=== PATIENT | male | born 1980 | race African-American/Black ===

== ENCOUNTER 2018-12-25 11:21 | Emergency (ER) | payer SELFPAY ==
[~2018-12-25 11:21] MED LIST: Iopamidol 370 76% 100 ML VIAL ONE
[2018-12-25] MEDS ORDERED: Sodium Chloride 0.9% 1,000 ML ONE (11:32)
[2018-12-25] MEDS ORDERED: Ondansetron PF 4 MG/2 ML Vial ONE ×2 (11:32→12:50)
[2018-12-25 11:54] LABS: #Basophils 0.1 thou/uL (0.0-0.2); #Eosinphils 0.2 thou/uL (0.0-0.7); #Lymphocytes 1.9 thou/uL (1.20-3.40); #Monocytes 0.8 thou/uL (0.11-0.59); #Neutrophils 4.8 thou/uL (1.40-6.50); %Basophils 1.5 % (0.0-1.0); %Eosinophils 3.1 % (0.0-10.0); %Monocytes 9.9 % (0.0-10.0); %Neutrophils 61.6 % (42.0-75.0); Hemoglobin 16.2 g/dL (14.0-18.0); Mean Corpuscular HGB CONC 32.4 g/dL (32.0-36.0); Mean Platelet Volume 8.8 fL (7.4-10.4); Platelet Count 274 thou/uL (130-400); Red Blood Cell (RBC) Count 4.92 mill/uL (4.70-6.10); White Blood Cell (WBC) Count 7.8 thou/uL (4.8-10.8)
[2018-12-25] MEDS ORDERED: Fentanyl 100 MCG/2 ML VIAL ONE ×3 (11:57→16:39)
[2018-12-25 12:15] LABS: ALT (SGPT) 27 U/L (8-55); AST (SGOT) 25 U/L (5-34); Albumin 4.8 g/dL (3.5-5.0); Alkaline Phosphatase 85 U/L (40-150); Anion Gap 15 mmol/L (10-20); BUN (Urea Nitrogen) 7 mg/dL (8.9-20.6); Bilirubin, Total 0.4 mg/dL (0.2-1.2); CK (CPK) 192 U/L (30-200); Calc. Creatinine Clearance 0 mL/min (70-130); Calcium 10.3 mg/dL (7.8-10.44); Carbon Dioxide 22 mmol/L (22-29); Chloride 107 mmol/L (98-107); Estimated GFR-MDRD Greater than 90; Globulin 3.1 g/dL (2.4-3.5); Glucose 97 mg/dL (70-105); Lipase 52 U/L (8-78); Protein, Total 7.9 g/dL (6.0-8.3); Sodium 140 mmol/L (136-145)
[2018-12-25] MEDS ORDERED: Pantoprazole 40 MG VIAL ONE (12:50)
[2018-12-25 13:08] LABS: Bilirubin Negative (Negative); Blood, Urine Trace (Negative); Clarity Clear (Clear); Glucose, Urine (Dipstick) Negative (Negative); Leukocyte Negative (Negative); Nitrite Negative (Negative); Protein, Urine (Dipstick) Negative (Neg-Trace); Urobilinogen 0.2 mg/dL (0.2-1.0); pH, Urine 7.5 (5.0-9.0)
[2018-12-25 13:10] LABS: Amphetamine Not Detected (NotDetected); Barbiturates Screen Not Detected (NotDetected); Benzodiazepine Screen Not Detected (NotDetected); Cocaine Metabolite Screen Not Detected (NotDetected); Medtox Control Line Valid? VALID (VALID); Methadone Not Detected (NotDetected); Methamphetamine Not Detected (NotDetected); Opiate Screen Not Detected (NotDetected); Oxycodone Screen Not Detected (NotDetected); Phencyclidine (PCP) Not Detected (NotDetected); THC/Cannabinoid Screen Detected (NotDetected); Tricyclic Screen Not Detected (NotDetected)
[2018-12-25 13:16] LABS: RBC/HPF 0-3 HPF (0-3); WBC/HPF 0-3 HPF (0-3)
--- NOTE | 2018-12-25 14:05 | CT ---
CT ABDOMEN AND PELVIS WITH CONTRAST: Date: 12/25/18 HISTORY: Nausea and vomiting. COMPARISON: CT abdomen and pelvis dated 10/17/14. FINDINGS: Low grade atelectatic changes in the lung bases. No pericardial effusion. Prior cholecystectomy. Mild reservoir effect extrahepatic biliary system. There is extensive motion artifact throughout the abdomen and pelvis. The appendix is visualized and is normal. There are no dilated loops of large or small bowel. There is some mucosal edema of the transverse colon with low grade hyperemia of the mesentery. Mild w all thickening of the proximal jejunum. Terminal ileum is unremarkable. No retroperitoneal adenopathy. Aortic contour is nonaneurysmal. Exam is somewhat limited due to the delayed phase of contrast as there is already contrast entering t he ureters. The spleen, adrenal glands, and pancreas are all unremarkable. No acute osseous abnormality. IMPRESSION: 1. Low grade proximal enteritis and transverse colitis. 2. Normal appendix. 3. Normal pancreas. 4. No hydronephrosis. POS: [facility]
[2018-12-25] MEDS ORDERED: Promethazine HCl 25 MG/ML VIAL ONE (14:06)
[2018-12-25] MEDS ORDERED: Lidocaine Viscous Sol 2% 15 ml UD Cup ONE (15:37)
[2018-12-25] MEDS ORDERED: Mag-Al Plus 1200 MG/1200 MG/120 MG/30 ML UDCUP ONE (15:37)
[2018-12-25 17:03] LABS: Lactic Acid 2.4 mmol/L (0.5-2.2)
== END 2018-12-25 16:56 | disposition short-term general hospital (02) ==
LOC: NAV ERS 11:21
DX: R11.2 Nausea with vomiting, unspecified (principal); R10.10 Upper abdominal pain, unspecified; Z87.891 Personal history of nicotine dependence
CPT/HCPCS: 74177; 80053; 80306; 81003; 81015; 82550; 83605; 83690; 84484; 85025; 93005; 96365; 96375; 96376; C9113; J2405; J2550; J3010; J7050; Q9967